=== PATIENT | female | born 1985 | race Caucasian/White ===

== ENCOUNTER 2021-02-08 10:44 | Emergency (ER) | payer OTHER ==
--- NOTE | 2021-02-08 11:48 | XRAY Report ---
PROCEDURE: Chest 1 View X-Ray INDICATIONS: Chest pain TECHNIQUE: One view of the chest was acquired. COMPARISON: None FINDINGS: Surgical changes and devices: None. Lungs and pleura: No pleural effusions or pneumothorax. Lungs are clear. Mediastinum: Mediastinal contours appear normal. Heart size is normal. Bones and chest wall: No suspicious bony lesions. Overlying soft tissues appear unremarkable. IMPRESSION: No acute cardiopulmonary disease process. Reviewed by: Alem Villa MD, PhD on 02/08/2021 11:46 AM PDT Approved by: Alem Villa MD, PhD on 02/08/2021 11:46 AM PDT Station ID: [id number]
[2021-02-08 11:51] LABS: BASOPHILS # (AUTO) 0.1 10^3/uL (0.0-0.1); BASOPHILS % (AUTO) 1.5 %; EOSINOPHILS # (AUTO) 0.2 10^3/uL (0.0-0.7); EOSINOPHILS % (AUTO) 2.7 %; HCT - HEMATOCRIT 41.3 % (37.0-47.0); HGB - HEMOGLOBIN 13.4 g/dL (12.0-16.0); LYMPHOCYTES # (AUTO) 1.8 10^3/uL (1.5-3.5); LYMPHOCYTES % (AUTO) 24.3 %; MEAN CORPUSCULAR HEMOGLOBIN 28.5 pg (27.0-31.0); MEAN CORPUSCULAR HGB CONC 32.4 g/dL (32.0-36.0); MEAN CORPUSCULAR VOLUME 87.7 fL (81.0-99.0); MONOCYTES # (AUTO) 0.7 10^3/uL (0.0-1.0); MONOCYTES % (AUTO) 9.3 %; NEUTROPHILS # (AUTO) 4.7 10^3/uL (1.5-6.6); NEUTROPHILS % (AUTO) 61.9 %; PLT - PLATELET COUNT 248 10^3/uL (130-450); RED BLOOD COUNT 4.71 10^6/uL (4.20-5.40); RED CELL DISTRIBUTION WIDTH 12.6 % (12.0-15.0); WHITE BLOOD COUNT 7.5 x10^3/uL (4.8-10.8)
[2021-02-08 12:02] LABS: ALBUMIN/GLOBULIN RATIO 1.6 (1.0-2.2); BILIRUBIN,TOTAL 0.7 mg/dL (0.2-1.0); CALCIUM 9.6 mg/dL (8.5-10.3); CREATININE 0.7 mg/dL (0.4-1.0); POTASSIUM 4.1 mmol/L (3.5-5.0); TOTAL PROTEIN 8.2 g/dL (6.7-8.2)
--- NOTE | 2021-02-08 13:14 | ED Physician Documentation ---
History of Present Illness - Stated complaint Stated Complaint: SOB/CHEST PX/DIZZINESS/LT LEG PX - Chief complaint Chief Complaint: Cardiac - Additonal information Additional information: 35-year-old female presents the emergency department for evaluation of shortness of air and left calf pain. She reports that for about 3 to 4 days she has had difficulty catching her breath especially with activity but does often notices it at rest as well. She sometimes feels lightheaded. She denies chest pain. Her other concern is that over the last 2 to 3 days she is also noted some left calf pain without swelling. She says it for about a month she has been dealing with knee issues and is unsure if this is an extension of that problem or not. Past medical history most significant for Crohn's disorder on Stelara. Denies any recent travel, immobilization surgery or unilateral leg swelling. Non-smoker. No hormone use. No personal history of blood clots or cancer. She does have an underlying history of anxiety for which she occasionally takes Ativan but denies feeling anxious recently. Review of Systems Constitutional: denies: Fever, Chills Eyes: reports: Reviewed and negative Ears: reports: Reviewed and negative Nose: reports: Reviewed and negative Throat: reports: Reviewed and negative Cardiac: denies: Chest pain / pressure, Palpitations Respiratory: reports: Dyspnea. denies: Cough, Hemoptysis, Wheezing GI: denies: Abdominal Pain, Nausea, Vomiting : denies: Dysuria, Frequency, Hesitancy Skin: denies: Rash, Lesions Musculoskeletal: reports: Extremity pain (left leg/calf) Neurologic: reports: Reviewed and negative PD PAST MEDICAL HISTORY - Present Medications Home Medications: Ambulatory Orders Medication Instructions Recorded Confirmed LORazepam [Ativan] 1 mg PRN 02/08/21 Ondansetron HCl [Zofran] 4 mg PRN 02/08/21 SUMAtriptan [Imitrex] 25 mg PRN 02/08/21 Ustekinumab [Stelara] 90 mg 02/08/21 - Allergies Allergies/Adverse Reactions: Allergies Allergy/AdvReac Type Severity Reaction Status Date / Time No Known Drug Allergies Allergy Verified 02/08/21 11:02 PD ED PE EXPANDED - General General: Alert, No acute distress - Neck Neck: Supple w/out meningeal sx. No: Adenopathy - Cardiac Cardiac: Regular Rate, Radial strong equal, Pedal strong equal, Cap refill < 2 sec. No: Murmur Present - Respiratory Respiratory: Clear to ausultation mariluz. No: Distress, Labored - Abdomen Abdomen: Normal Bowel sounds. No: Tender to palpation - Derm Derm: Normal color, Warm and dry. No: Rash - Extremities Extremities: Normal, Left calf TTP/cord. No: Deformity, Tenderness, Pedal edema bilateral, Right calf TTP/cord - Neuro Neuro: Alert and Oriented X 3, CNII-XII intact Results - Vitals Vitals: Vital Signs - 24 hr 02/08/21 10:59 Temperature 36.4 C L Heart Rate 82 Respiratory 16 Rate Blood Pressure 136/83 H O2 Saturation 100 Oxygen O2 Source Room air - EKG (time done) 1113 Rate: Rate (enter#) (84) Rhythm: NSR [place]: Normal Intervals: Normal [place] QRS: Normal Ischemia: Normal ST segments Compare to prior EKG: Old EKG unavailable Computer interpretation: Agree with computer - Labs Labs: Laboratory Tests 02/08/21 02/08/21 02/08/21 11:02 11:42 11:42 WBC 7.5 RBC 4.71 Hgb 13.4 Hct 41.3 MCV 87.7 MCH 28.5 MCHC 32.4 RDW 12.6 Plt Count 248 MPV 10.0 Neut # (Auto) 4.7 Lymph # (Auto) 1.8 Graham # (Auto) 0.7 Eos # (Auto) 0.2 Baso # (Auto) 0.1 Absolute Nucleated RBC 0.00 Nucleated RBC % 0.0 D-Dimer < 200.0 L Sodium 136 Potassium 4.1 Chloride 100 L Carbon Dioxide 28 Anion Gap 8.0 BUN 14 Creatinine 0.7 Estimated GFR (MDRD) 96 Glucose 108 H Calcium 9.6 Total Bilirubin 0.7 AST 19 ALT 19 Alkaline Phosphatase 56 Troponin I High Sens Total Protein 8.2 Albumin 5.0 Globulin 3.2 Albumin/Globulin Ratio 1.6 Lipase 25 02/08/21 11:42 WBC RBC Hgb Hct MCV MCH MCHC RDW Plt Count MPV Neut # (Auto) Lymph # (Auto) Graham # (Auto) Eos # (Auto) Baso # (Auto) Absolute Nucleated RBC Nucleated RBC % D-Dimer Sodium Potassium Chloride Carbon Dioxide Anion Gap BUN Creatinine Estimated GFR (MDRD) Glucose Calcium Total Bilirubin AST ALT Alkaline Phosphatase Troponin I High Sens < 2.3 L Total Protein Albumin Globulin Albumin/Globulin Ratio Lipase - Rads (name of study) CXR Radiology: Final report received (No acute cardiopulmonary disease process.) US DVT Radiology: Final report received (Negative for deep vein thrombosis.) PD MEDICAL DECISION MAKING - ED course Complexity details: reviewed results, re-evaluated patient, d/w patient ED course: 35-year-old female presents the emergency department for evaluation of left leg pain as well as associated shortness of air that has been getting progressively worse for 3 days. Chest x-ray EKG screening labs including troponin are all unremarkable. A D-dimer was negative. In addition to that she has a negative PERC and Wells criteria. However the left lower leg pain made her exceedingly concerned that she could have a DVT. We did proceed to form an ultrasound that was negative. At this time patient feels improved and will be discharged home with emergent return precautions Departure - Departure Disposition: 01 Home, Self Care Clinical Impression: Pain of left calf, Shortness of breath Condition: Stable Record reviewed to determine appropriate education?: Yes Follow-Up: Nissa Lam MD [Primary Care Provider] - Comments: You were seen in the emergency department today for shortness of air as well as left calf pain. As we discussed your chest x-ray screening EKG and labs including troponin and D-dimer are all negative. We did do an ultrasound of the left leg as well that did not show evidence of a blood clot. Please discuss this emergency department visit with your primary care provider. Return to the emergency department for development of chest pain, severe shortness of air, fevers uncontrolled vomiting or any fainting episodes.
[2021-02-08 15:01] VITALS: BP 128/70
--- NOTE | 2021-02-08 15:05 | Ultrasound Report ---
PROCEDURE: Duplex Ext Veins Left INDICATIONS: SOA; left calf pain; no swelling TECHNIQUE: Real-time imaging, as well as color and pulse Doppler interrogation, were performed of the lower extr emity deep veins from the inguinal ligament to the popliteal fossa. COMPARISON: None. FINDINGS: The deep veins are normally compressible, and free of intraluminal thrombus. Color and pu lse Doppler demonstrate normal phasic intraluminal flow. There is normal augmentation response to di stal compression maneuver. IMPRESSION: No deep venous thrombosis. Reviewed by: Shania Wagner MD on 02/08/2021 2:04 PM HELAD[facility] Approved by: Shania Wagner MD on 02/08/2021 2:04 PM HELADIO Station ID: [id number]
== END 2021-02-08 15:10 | disposition home or self-care (01) ==
LOC: ED 10:44
DX: M79.662 Pain in left lower leg (principal); R06.02 Shortness of breath
CPT/HCPCS: 36415; 80053; 83690; 84484; 85025; 85379; 93005; 99284